=== PATIENT | female | born 1950 | race Caucasian/White ===

== ENCOUNTER → 2016-12-02 | Outpatient (CLI) | payer OTHER ==
[~2016-12-02] MED LIST: ALEN70TA5 PO; CARV3.122 PO; DIAZ10TA4 PO; DIGO125T PO; MONT10TA9 PO; MOXI3DRO2 LEFTEYE; OXYC-229 PO; SERT100T5 PO; VALS40TA2 PO
== END | disposition home or self-care (01) ==
LOC: CFH 06:55
PROVIDERS: ATTEND Nurse Practitioner Family
DX: N20.0 Calculus of kidney (principal)
CPT/HCPCS: 76700

== ENCOUNTER → 2017-09-27 | Outpatient (CLI) | payer OTHER ==
[~2017-09-27] MED LIST changes: -OXYC-229 PO; +OXYC-307 PO
== END ==
LOC: CFH 12:17
PROVIDERS: ATTEND Internal Medicine Cardiovascular Disease
DX: I08.1 Rheumatic disorders of both mitral and tricuspid valves (principal); I42.8 Other cardiomyopathies; I42.9 Cardiomyopathy, unspecified
CPT/HCPCS: 93306

== ENCOUNTER → 2018-10-05 | Outpatient (CLI) | payer MEDICARE ==
[~2018-10-05] MED LIST changes: -ALEN70TA5 PO; +ALEN70TA6 PO; +SERT100T32 PO; -SERT100T5 PO
== END | disposition home or self-care (01) ==
LOC: CFH 07:59
PROVIDERS: ATTEND Nurse Practitioner Family
DX: M17.11 Unilateral primary osteoarthritis, right knee (principal); M23.91 Unspecified internal derangement of right knee

== ENCOUNTER 2018-12-25 15:19 | Outpatient (CLI) | payer MEDICARE | END 2018-12-25 23:59 | disposition home or self-care (01) | LOC: CFH 15:19 | PROVIDERS: ATTEND Internal Medicine Cardiovascular Disease | DX: I08.3 Combined rheumatic disorders of mitral, aortic and tricuspid valves (principal); Z86.74 Personal history of sudden cardiac arrest; Z95.810 Presence of automatic (implantable) cardiac defibrillator | CPT/HCPCS: 93306 ==

== ENCOUNTER → 2019-03-26 | Outpatient (CLI) | payer MEDICARE ==
[2019-03-26 12:56] LABS: ALBUMIN 3.9 g/dL (3.4-5.0); ANION GAP 6 mmol/L (5-15); CALCIUM 9.2 mg/dL (8.5-10.1); CHLORIDE 109 mmol/L (98-107)
[2019-03-26 12:59] LABS: ALANINE AMINOTRANSFERASE 27 U/L (12-78); ALKALINE PHOSPHATASE 78 U/L (45-117); BILIRUBIN,TOTAL 0.6 mg/dL (0.2-1.0); CREATININE 0.81 mg/dL (0.55-1.02); TOTAL PROTEIN 7.5 g/dL (6.4-8.2)
== END | disposition home or self-care (01) ==
LOC: CFH 09:43
PROVIDERS: ATTEND Internal Medicine Cardiovascular Disease
DX: E78.5 Hyperlipidemia, unspecified (principal); I42.2 Other hypertrophic cardiomyopathy; I42.8 Other cardiomyopathies; R53.83 Other fatigue
CPT/HCPCS: 36415; 80053

== ENCOUNTER 2019-08-17 07:03 | Emergency (ER) | payer MEDICARE ==
[~2019-08-17] VITALS: Ht 160 cm; Wt 55.5 kg
[~2019-08-17 07:03] MED LIST changes: +MOXI3DRO19 LEFTEYE; -MOXI3DRO2 LEFTEYE
--- NOTE | 2019-08-17 07:37 | NUR ---
PT TO ED FOR DEFIB SHOCK X1 TODAY. PT STATES SHE WAS FEELING LIGHTHEADED PRIOR TO SHOCK FOR APPROX 1 MINUTE. PT WAS SITTING IN CHAIR AND DID NOT FALL DURING EVENT. PT CONNECTED TO MONITORS. VSS. DR. LEUNG TO BS FOR ASSESSMENT. AWAITING ORDERS.
--- NOTE | 2019-08-17 07:55 | NUR ---
LAB TO BS FOR DRAW.
[2019-08-17 08:06] LABS: MEAN CORPUSCULAR HEMOGLOBIN 30.3 pg (27.0-34.8); MEAN CORPUSCULAR HGB CONC 33.6 g/dL (32.4-35.8); MEAN CORPUSCULAR VOLUME 90.3 fL (80-100); MEAN PLATELET VOLUME 8.6 fL (7.4-10.4); PLATELET COUNT 203 x10^3/uL (130-400); RED BLOOD COUNT 4.41 x10^6/uL (3.82-5.3); RED CELL DISTRIBUTION WIDTH 13.2 % (9.6-15.2)
[2019-08-17 08:16] LABS: ANION GAP 7 mmol/L (5-15); CHLORIDE 107 mmol/L (98-107); CREATININE 0.78 mg/dL (0.55-1.02)
[2019-08-17 08:42] LABS: BASOPHILS # (AUTO) 0.03 x10^3/uL (0-0.1); BASOPHILS % (AUTO) 1 % (0-1); EOSINOPHILS # (AUTO) 0.13 x10^3/uL (0-0.4); EOSINOPHILS % (AUTO) 4 % (1-7); LYMPHOCYTES # (AUTO) 1.18 x10^3/uL (1-3.4); LYMPHOCYTES % (AUTO) 33 % (22-44); MD SCAN; MONOCYTES # (AUTO) 0.26 x10^3/uL (0.2-0.8); MONOCYTES % (AUTO) 7 % (2-9); NEUTROPHILS # (AUTO) 2.02 x10^3/uL (1.8-6.8); NEUTROPHILS % (AUTO) 56 % (42-75)
--- NOTE | 2019-08-17 09:15 | NUR ---
pacer interrogated by this rn. results to Dr. Hart. pt resting in room. vss. no needs epxressed. call light within reach. awaiting dispo.
[2019-08-17 09:16] VITALS: BP 125/71
== END 2019-08-17 09:40 | disposition home or self-care (01) ==
LOC: ED 08:24
DX: R55 Syncope and collapse (principal); Z87.891 Personal history of nicotine dependence; I25.2 Old myocardial infarction
CPT/HCPCS: 36415; 80048; 83735; 85025; 93005; 99284

== ENCOUNTER 2019-10-05 07:54 | Outpatient (CLI) | payer MEDICARE ==
[~2019-10-05 07:54] MED LIST changes: -DIGO125T PO; +DIGO125T85 PO; +MONT10TA11 PO; -MONT10TA9 PO
== END 2019-10-05 23:59 | disposition home or self-care (01) ==
LOC: CFH 07:54
PROVIDERS: ATTEND Licensed Practical Nurse
DX: Z13.820 Encounter for screening for osteoporosis (principal); M81.0 Age-related osteoporosis without current pathological fracture; N95.9 Unspecified menopausal and perimenopausal disorder; M85.9 Disorder of bone density and structure, unspecified
CPT/HCPCS: 77080

== ENCOUNTER 2020-09-18 12:17 | Emergency (ER) | payer MEDICARE ==
[~2020-09-18] VITALS: Ht 162.6 cm; Wt 56.3 kg
[~2020-09-18 12:17] MED LIST changes: -ALEN70TA6 PO; +ALEN70TA77 PO; -MONT10TA11 PO; +MONT10TA96 PO
--- NOTE | 2020-09-18 12:39 | NUR ---
PATIENT WALKED BACK FROM TRIAGE WITH CHIEF C/O ALOC. PER PATIENT'S SPOUSE PATIENT STARTED BECOMING CONFUSED, N/V, AND WEAKNESS THAT STARTED ABOUT 0900 THIS MORNING. PATIENT IS A&OX3, KNOWS NAME, , WHERE SHE IS AND WHY SHE IS HERE, PATIENT DOES NOT KNOW THE DATE. NADN, VSS, CALL LIGHT WITHIN REACH.
--- NOTE | 2020-09-18 13:02 | NUR ---
BREAK RN: MIRNA AT BEDSIDE FOR EVALUATION.
[2020-09-18] MEDS ORDERED: SODIUM CHLORIDE FLUSH 10ML SYR IVF ONE (13:30)
[2020-09-18] MEDS ORDERED: SODIUM CHLORIDE 0.9% 1,000 ML IV ONE (13:30)
[2020-09-18] MEDS ORDERED: ONDANSETRON 2MG/ML, 2ML IVPush ONE (13:30)
[2020-09-18 13:32] LABS: BASOPHILS % (AUTO) 1 % (0-1); EOSINOPHILS % (AUTO) 1 % (1-7); LYMPHOCYTES % (AUTO) 14 % (22-44); MEAN CORPUSCULAR HEMOGLOBIN 30.5 pg (27.0-34.8); MEAN CORPUSCULAR HGB CONC 34.1 g/dL (32.4-35.8); MEAN PLATELET VOLUME 8.8 fL (7.4-10.4); MONOCYTES % (AUTO) 5 % (2-9); NEUTROPHILS % (AUTO) 80 % (42-75); PLATELET COUNT 178 x10^3/uL (130-400); RED BLOOD COUNT 4.82 x10^6/uL (3.82-5.3); RED CELL DISTRIBUTION WIDTH 14.2 % (9.6-15.2)
[2020-09-18 13:33] LABS: MD NO
--- NOTE | 2020-09-18 13:34 | NUR ---
PT TO IMAGING
[2020-09-18 13:40] LABS: ALANINE AMINOTRANSFERASE 39 U/L (12-78); ALBUMIN 3.9 g/dL (3.4-5.0); ANION GAP 7 mmol/L (5-15); CALCIUM 9.6 mg/dL (8.5-10.1); CHLORIDE 102 mmol/L (98-107); CREATININE 0.85 mg/dL (0.55-1.02)
[2020-09-18 13:43] LABS: ALKALINE PHOSPHATASE 89 U/L (45-117); BILIRUBIN,TOTAL 0.5 mg/dL (0.2-1.0); TOTAL PROTEIN 7.3 g/dL (6.4-8.2)
--- NOTE | 2020-09-18 14:30 | NUR ---
STRAIGHT CATH PERFORMED, PT TOLERATED WELL. SPECIMEN WALKED TO LAB, VSS, NAD NOTED
[2020-09-18 14:58] LABS: MICROSCOPIC INDICATED
[2020-09-18] MEDS ORDERED: CEFTRIAXONE PMX 1GM/50ML 50 ML ONE (15:45)
--- NOTE | 2020-09-18 15:49 | NUR ---
PT MEDICATED PER MAR, VSS.
[2020-09-18] MEDS ORDERED: CEFTRIAXONE PMX 1GM/50ML 50 ML IV ONE (16:00)
[2020-09-18 16:06] VITALS: BP 124/44
== END 2020-09-18 18:07 | disposition home or self-care (01) ==
LOC: ED 16:48
DX: N30.00 Acute cystitis without hematuria (principal); E86.0 Dehydration; R10.9 Unspecified abdominal pain; R41.82 Altered mental status, unspecified; R53.83 Other fatigue; R42 Dizziness and giddiness; I44.7 Left bundle-branch block, unspecified; R11.2 Nausea with vomiting, unspecified; I25.2 Old myocardial infarction; Z95.0 Presence of cardiac pacemaker
CPT/HCPCS: 36415; 70450; 74176; 80053; 81001; 82140; 85025; 87077; 87086; 87186; 93005; 96361; 96365; 96375; 99285; J0696; J2405; J7030